=== PATIENT | male | born 1995 | race African-American/Black ===

== ENCOUNTER 2024-01-20 09:41 | Inpatient (IN) | payer OTHER, SELFPAY ==
[2024-01-20] MEDS ORDERED: Iopamidol-370 76% 500 ML MDV (1 ML CHARGE) ONE (10:01)
[2024-01-20 10:31] LABS: #Basophils 0.04 10x3/uL (0.0-0.2); %Basophils 0.6 % (0.0-1.0); %Eosinophils 0.7 % (0.0-10.0); %Lymphocytes 28.4 % (21.0-51.0); %Monocytes 13.2 % (0.0-10.0); Hematocrit 40.5 % (42.0-52.0); Mean Corpuscular HGB CONC 32.1 g/dL (32.0-36.0); Mean Corpuscular Volume 71.8 fL (78.0-98.0); Mean Platelet Volume 8.5 fL (7.4-10.4); Platelet Count 423 10x3/uL (130-400); Red Blood Cell (RBC) Count 5.64 mill/uL (4.70-6.10)
[2024-01-20 10:50] LABS: ALT (SGPT) 10 U/L (8-55); AST (SGOT) 36 U/L (5-34); Albumin 3.7 g/dL (3.5-5.0); Alkaline Phosphatase 69 U/L (40-110); Anion Gap 16 mmol/L (10-20); BUN (Urea Nitrogen) 19 mg/dL (8.9-20.6); Bilirubin, Total 0.4 mg/dL (0.2-1.2); Calc. Creatinine Clearance 0 mL/min (70-130); Calcium 9.2 mg/dL (7.8-10.44); Carbon Dioxide 25 mmol/L (22-29); Chloride 100 mmol/L (98-107); Estimated GFR 26; Globulin 4.5 g/dL (2.4-3.5); Glucose 105 mg/dL (70-105); Lipase 17 U/L (8-78); Potassium 4.7 mmol/L (3.5-5.1); Protein, Total 8.2 g/dL (6.0-8.3); Sodium 136 mmol/L (136-145)
[2024-01-20] MEDS ORDERED: HYDROmorphone 0.5 MG/0.5 ML SYRINGE ONE (10:51)
[2024-01-20] MEDS ORDERED: Ondansetron PF 4 MG/2 ML Vial ONE (10:51)
[2024-01-20 11:26] LABS: Bacteria/HPF None Seen HPF (None Seen); Bilirubin Negative (Negative); Blood, Urine Trace (Negative); CAUTI Indications for Culture Dysuria,urgency,freq; Clarity Clear (Clear); Glucose, Urine (Dipstick) Normal (Negative); Ketone, Urine Negative (Negative); Leukocyte Negative Leu/uL (Negative); Nitrite Negative (Negative); Protein, Urine (Dipstick) 100 mg/dL (Neg-Trace); RBC/HPF 0-3 HPF (0-3); Squamous Epithelial 0-3 HPF (0-3); Urobilinogen Normal mg/dL (Less than 2); WBC/HPF 0-3 HPF (0-3); pH, Urine 5.5 (5.0-9.0)
[2024-01-20 11:29] LABS: Urine Culture Reflex No No
[2024-01-20 11:29] LABS: Microcytosis SLIGHT = 6-15 cells HPF (0-5); Platelet Adequacy Comment Platelets Increased; Polychromasia SLIGHT = 2-3 cells HPF (0-2)
[2024-01-20] MEDS ORDERED: Morphine 4 MG/ML VIAL ONE (11:36)
[2024-01-20] MEDS: HYDROcodone/Acetaminophen 5/325 mg Tablet PO PRN (13:31)
[2024-01-20] MEDS: Sodium Chloride 0.9% 1,000 ML IV SCH (13:32)
[2024-01-20] MEDS: Pantoprazole DR 40 MG TAB PO SCH ×2 (13:38→20:16)
[2024-01-20 13:49] VITALS: BMI 21.9
[2024-01-20] MEDS: Morphine 2 MG/ML VIAL SLOW IVP PRN (15:54)
[2024-01-20] MEDS: Heparin 5,000 UNITS/ML VIAL SC SCH (15:56)
[2024-01-20] MEDS: Mag-Al 1200 mg/1200 mg/30 ML UDCUP PO PRN (17:50)
[2024-01-20] MEDS: Ondansetron PF 4 MG/2 ML Vial IVP PRN (17:51)
[2024-01-20] MEDS: traMADol HCl 50 MG TAB PO PRN (20:16)
[2024-01-20] MEDS: Cyclobenzaprine 10 MG TAB PO SCH (20:17)
[2024-01-20] MEDS ORDERED: Famotidine 20 MG TAB PO SCH (21:00)
[2024-01-21 05:34] LABS: #Basophils 0.06 10x3/uL (0.0-0.2); %Basophils 0.8 % (0.0-1.0); %Eosinophils 1.8 % (0.0-10.0); %Lymphocytes 30.7 % (21.0-51.0); %Monocytes 15.7 % (0.0-10.0); %Neutrophils 50.7 % (42.0-75.0); Hematocrit 31.3 % (42.0-52.0); Mean Corpuscular HGB CONC 31.9 g/dL (32.0-36.0); Mean Corpuscular Hemoglobin 23.3 pg (27.0-31.0); Mean Platelet Volume 8.8 fL (7.4-10.4); Platelet Count 367 10x3/uL (130-400); RBC Distribution Width 18.6 % (11.5-14.5); Red Blood Cell (RBC) Count 4.29 mill/uL (4.70-6.10)
[2024-01-21 05:45] LABS: Anion Gap 13 mmol/L (10-20); BUN (Urea Nitrogen) 19 mg/dL (8.9-20.6); Calc. Creatinine Clearance 30 mL/min (70-130); Calcium 8.1 mg/dL (7.8-10.44); Carbon Dioxide 22 mmol/L (22-29); Chloride 106 mmol/L (98-107); Estimated GFR 27; Glucose 79 mg/dL (70-105); Potassium 4.2 mmol/L (3.5-5.1); Sodium 137 mmol/L (136-145)
[2024-01-21] MEDS ORDERED: fentaNYL 50 mcg/mL 1 mL Vial ONE (08:35)
[2024-01-21] MEDS: cefTRIAXone\\ROCEPHIN 1 GM in Sodium Chloride 0.9% 100 ML IVPB SCH (08:58)
[2024-01-21] MEDS ORDERED: Pantoprazole DR 40 MG TAB PO SCH (09:00)
[2024-01-21] MEDS ORDERED: SUCCINYLCHOLINE/SOD CL,ISO/PF 200 MG/10 ML SYRINGE FS ONE (09:16)
[2024-01-21] MEDS ORDERED: Lidocaine 1% PF 5 ML VIAL ONE (09:16)
[2024-01-21] MEDS ORDERED: Dexamethasone 4 mg/ml Vial ONE (09:21)
[2024-01-21] MEDS ORDERED: Ondansetron PF 4 MG/2 ML Vial ONE (09:21)
[2024-01-21] MEDS ORDERED: fentaNYL PF 100 MCG/2 ML SYRINGE ONE (09:59)
[2024-01-21] MEDS: hydrALAZINE 20 MG/ML VIAL SLOW IVP SCH (12:48)
[2024-01-21] MEDS: Pantoprazole 40 MG VIAL IVP SCH (12:48)
[2024-01-21 13:03] LABS: Hematocrit 36.7 % (42.0-52.0); Hemoglobin 11.3 g/dL (14.0-18.0)
[2024-01-21 13:20] LABS: Iron 20 ug/dL (65-175); Iron Binding Capacity, Total 308 mcg/dL (261-462)
[2024-01-21] MEDS: Lactated Ringer's 1,000 ML IV SCH (17:02)
[2024-01-21] MEDS: GoLYTELY 4,000 ml Bottle PO SCH (17:30)
[2024-01-21] MEDS: Acetaminophen 325 MG TAB PO PRN (19:11)
[2024-01-22] MEDS: Morphine 4 MG/ML VIAL SLOW IVP SCH (00:04)
[2024-01-22] MEDS ORDERED: PROPOFOL 40 ML ONE (09:20)
[2024-01-22] MEDS ORDERED: fentaNYL 50 mcg/mL 1 mL Vial ONE (10:26)
[2024-01-22] MEDS: NIFEdipine XL 30 MG ER.TAB PO SCH (10:40)
[2024-01-22] MEDS ORDERED: Iopamidol-370 76% 500 ML MDV (1 ML CHARGE) ONE (11:17)
[2024-01-22] MEDS: Sodium Ferric Gluconate 250 MG in Sodium Chloride 0.9% 250 ML 250 ML IVPB SCH (11:32)
[2024-01-22 12:02] LABS: Mean Corpuscular HGB CONC 32.3 g/dL (32.0-36.0); Mean Corpuscular Hemoglobin 23.1 pg (27.0-31.0); Mean Corpuscular Volume 71.6 fL (78.0-98.0); Mean Platelet Volume 8.8 fL (7.4-10.4); Platelet Count 389 10x3/uL (130-400); RBC Distribution Width 18.4 % (11.5-14.5); Red Blood Cell (RBC) Count 4.33 mill/uL (4.70-6.10)
[2024-01-22 12:17] LABS: Anion Gap 15 mmol/L (10-20); BUN (Urea Nitrogen) 16 mg/dL (8.9-20.6); Calc. Creatinine Clearance 43 mL/min (70-130); Calcium 8.4 mg/dL (7.8-10.44); Carbon Dioxide 21 mmol/L (22-29); Chloride 106 mmol/L (98-107); Estimated GFR 42; Glucose 81 mg/dL (70-105); Potassium 3.7 mmol/L (3.5-5.1); Sodium 138 mmol/L (136-145)
[2024-01-22] MEDS: Morphine 2 MG/ML VIAL SLOW IVP SCH (13:49)
[2024-01-22] MEDS: Albumin 25% 25 GM (100 mL) BOT IVPB SCH ×2 (14:44→20:05)
[2024-01-22] MEDS: fentaNYL 50 mcg/mL 1 mL Vial SLOW IVP SCH (15:07)
[2024-01-22] MEDS: Simethicone Chewable 80 MG TAB PO PRN (15:07)
[2024-01-22] MEDS: Lactated Ringer's 1,000 ML IV SCH (17:53)
[2024-01-22] MEDS: HYDROcodone/Acetaminophen 10/325 mg Tablet PO SCH (21:15)
[2024-01-23 06:00] LABS: Hematocrit 28.1 % (42.0-52.0); Hemoglobin 9.1 g/dL (14.0-18.0); Mean Corpuscular HGB CONC 32.4 g/dL (32.0-36.0); Mean Corpuscular Hemoglobin 23.2 pg (27.0-31.0); Mean Corpuscular Volume 71.5 fL (78.0-98.0); Mean Platelet Volume 9.2 fL (7.4-10.4); Platelet Count 379 10x3/uL (130-400); RBC Distribution Width 18.6 % (11.5-14.5); Red Blood Cell (RBC) Count 3.93 mill/uL (4.70-6.10)
[2024-01-23 06:13] LABS: Anion Gap 14 mmol/L (10-20); BUN (Urea Nitrogen) 14 mg/dL (8.9-20.6); Calc. Creatinine Clearance 45 mL/min (70-130); Calcium 8.5 mg/dL (7.8-10.44); Carbon Dioxide 22 mmol/L (22-29); Chloride 105 mmol/L (98-107); Estimated GFR 45; Glucose 85 mg/dL (70-105); Potassium 3.7 mmol/L (3.5-5.1); Sodium 137 mmol/L (136-145)
[2024-01-23] MEDS: Cyclobenzaprine 10 MG TAB PO PRN (14:25)
[2024-01-23] MEDS: Morphine 2 MG/ML VIAL SLOW IVP PRN (15:27)
[2024-01-23] MEDS: Ipratropium/Albuterol 3 ML NEB NEB SCH ×2 (21:15→22:48)
[2024-01-23] MEDS: Furosemide 20 MG (2 mL) VIAL SLOW IVP SCH (23:01)
[2024-01-24 05:25] LABS: Hematocrit 27.8 % (42.0-52.0); Hemoglobin 9.1 g/dL (14.0-18.0); Mean Corpuscular HGB CONC 32.7 g/dL (32.0-36.0); Mean Corpuscular Hemoglobin 23.4 pg (27.0-31.0); Mean Corpuscular Volume 71.5 fL (78.0-98.0); Mean Platelet Volume 9.4 fL (7.4-10.4); Platelet Count 369 10x3/uL (130-400); Red Blood Cell (RBC) Count 3.89 mill/uL (4.70-6.10)
[2024-01-24 05:51] LABS: Anion Gap 15 mmol/L (10-20); BUN (Urea Nitrogen) 12 mg/dL (8.9-20.6); Calc. Creatinine Clearance 45 mL/min (70-130); Calcium 8.9 mg/dL (7.8-10.44); Carbon Dioxide 25 mmol/L (22-29); Chloride 105 mmol/L (98-107); Estimated GFR 44; Glucose 75 mg/dL (70-105); Potassium 3.6 mmol/L (3.5-5.1); Sodium 141 mmol/L (136-145)
[2024-01-24] MEDS: NIFEdipine XL 60 MG ER.TAB PO SCH (08:52)
[2024-01-24] MEDS: Furosemide 40 MG (4 mL) VIAL SLOW IVP SCH (12:32)
[2024-01-24] MEDS ORDERED: Magnevist 469MG/ML 20 ML VIAL ONE (12:35)
[2024-01-25 10:13] LABS: Anion Gap 14 mmol/L (10-20); BUN (Urea Nitrogen) 11 mg/dL (8.9-20.6); Calc. Creatinine Clearance 60 mL/min (70-130); Calcium 8.8 mg/dL (7.8-10.44); Carbon Dioxide 25 mmol/L (22-29); Chloride 96 mmol/L (98-107); Estimated GFR 62; Glucose 76 mg/dL (70-105); Potassium 3.3 mmol/L (3.5-5.1); Sodium 132 mmol/L (136-145)
[2024-01-25 14:07] LABS: EliA Celiac New Method **** NEW METHOD ****; t-Transglutaminase (tTG) IgA 0.4 EliAU/mL (<7 Negative)
[2024-01-25] MEDS: Carvedilol 6.25 MG TAB PO SCH (16:47)
[2024-01-25] MEDS: Potassium Chloride 20 MEQ TAB PO SCH (16:47)
[2024-01-25] MEDS ORDERED: Ipratropium/Albuterol 3 ML NEB NEB SCH (19:00)
[2024-01-26 06:57] LABS: Anion Gap 16 mmol/L (10-20); BUN (Urea Nitrogen) 13 mg/dL (8.9-20.6); Calc. Creatinine Clearance 70 mL/min (70-130); Calcium 8.8 mg/dL (7.8-10.44); Carbon Dioxide 23 mmol/L (22-29); Chloride 101 mmol/L (98-107); Estimated GFR 76; Glucose 88 mg/dL (70-105); Potassium 3.9 mmol/L (3.5-5.1); Sodium 136 mmol/L (136-145)
[2024-01-26 09:47] LABS: Hematocrit 33.2 % (42.0-52.0); Hemoglobin 10.7 g/dL (14.0-18.0); Mean Corpuscular HGB CONC 32.2 g/dL (32.0-36.0); Mean Corpuscular Hemoglobin 23.2 pg (27.0-31.0); Mean Corpuscular Volume 71.9 fL (78.0-98.0); Mean Platelet Volume 9.4 fL (7.4-10.4); Platelet Count 433 10x3/uL (130-400); RBC Distribution Width 19.5 % (11.5-14.5); Red Blood Cell (RBC) Count 4.62 mill/uL (4.70-6.10)
[2024-01-26 10:21] LABS: Anisocytosis SLIGHT = 6-15 cells HPF (0-5); Band 5 % (5-11); Burr Cells SLIGHT = 2-5 cells HPF (0-1); Eosinophils 3 % (0-10); Hypochromia SLIGHT = 6-15 cells HPF (0-5); Lymphocytes 12 % (21-51); Microcytosis SLIGHT = 6-15 cells HPF (0-5); Monocytes 15 % (0-10); Neutrophil 65 % (42-75); Platelet Adequacy Comment Platelets Normal; Polychromasia MODERATE = 3-4 cells HPF (0-2); Schistocytes SLIGHT = 2-5 cells HPF (0-1); Target Cells SLIGHT = 2-5 cells HPF (0-1)
[2024-01-26 10:24] LABS: Influenza A by NAA Not Detected (NotDetected); Influenza B by NAA Not Detected (NotDetected); RSV by NAA Not Detected (NotDetected); SARS-CoV-2 NAA Rapid Test Not Detected (NotDetected)
[2024-01-26] MEDS: cefTRIAXone\\ROCEPHIN 2 GM in Sodium Chloride 0.9% 100 ML IVPB SCH (11:48)
[2024-01-26] MEDS ORDERED: [UNRECOGNIZED DRUG - OTHER] FS PRN (12:23)
[2024-01-26] MEDS: Furosemide 40 MG (4 mL) VIAL SLOW IVP SCH (14:34)
[2024-01-26] MEDS: HYDROcodone/Acetaminophen 5/325 mg Tablet PO PRN (20:36)
[2024-01-27 04:47] LABS: #Basophils 0.05 10x3/uL (0.0-0.2); %Basophils 0.3 % (0.0-1.0); %Eosinophils 2.5 % (0.0-10.0); %Lymphocytes 19.5 % (21.0-51.0); %Monocytes 15.4 % (0.0-10.0); %Neutrophils 61.8 % (42.0-75.0); Hematocrit 31.6 % (42.0-52.0); Hemoglobin 10.2 g/dL (14.0-18.0); Mean Corpuscular HGB CONC 32.3 g/dL (32.0-36.0); Mean Corpuscular Hemoglobin 23.1 pg (27.0-31.0); Mean Corpuscular Volume 71.7 fL (78.0-98.0); Mean Platelet Volume 9.3 fL (7.4-10.4); Platelet Count 456 10x3/uL (130-400); RBC Distribution Width 19.3 % (11.5-14.5); Red Blood Cell (RBC) Count 4.41 mill/uL (4.70-6.10)
[2024-01-27 08:51] LABS: Anion Gap 16 mmol/L (10-20); BUN (Urea Nitrogen) 11 mg/dL (8.9-20.6); Calc. Creatinine Clearance 75 mL/min (70-130); Carbon Dioxide 25 mmol/L (22-29); Chloride 99 mmol/L (98-107); Estimated GFR 82; Glucose 85 mg/dL (70-105); Potassium 3.9 mmol/L (3.5-5.1); Sodium 136 mmol/L (136-145)
[2024-01-27] MEDS: Ipratropium/Albuterol 3 ML NEB NEB PRN (22:18)
[2024-01-28 05:14] LABS: #Basophils 0.05 10x3/uL (0.0-0.2); %Basophils 0.4 % (0.0-1.0); %Eosinophils 3.6 % (0.0-10.0); %Lymphocytes 24.9 % (21.0-51.0); %Monocytes 17.3 % (0.0-10.0); %Neutrophils 53.4 % (42.0-75.0); Hematocrit 33.9 % (42.0-52.0); Hemoglobin 10.9 g/dL (14.0-18.0); Mean Corpuscular HGB CONC 32.2 g/dL (32.0-36.0); Mean Corpuscular Hemoglobin 23.2 pg (27.0-31.0); Mean Corpuscular Volume 72.3 fL (78.0-98.0); Mean Platelet Volume 9.4 fL (7.4-10.4); Platelet Count 529 10x3/uL (130-400); RBC Distribution Width 20.4 % (11.5-14.5); Red Blood Cell (RBC) Count 4.69 mill/uL (4.70-6.10)
[2024-01-28 05:30] LABS: Anion Gap 15 mmol/L (10-20); BUN (Urea Nitrogen) 9 mg/dL (8.9-20.6); Calc. Creatinine Clearance 95 mL/min (70-130); Carbon Dioxide 25 mmol/L (22-29); Chloride 100 mmol/L (98-107); Estimated GFR 109; Glucose 90 mg/dL (70-105); Potassium 4.2 mmol/L (3.5-5.1); Sodium 136 mmol/L (136-145)
[2024-01-28 13:13] VITALS: BMI 21.9
[2024-01-29 03:58] VITALS: TEMP 98.3
[2024-01-29 05:16] LABS: #Basophils 0.05 10x3/uL (0.0-0.2); %Basophils 0.5 % (0.0-1.0); %Lymphocytes 32.3 % (21.0-51.0); %Monocytes 19.8 % (0.0-10.0); %Neutrophils 43.1 % (42.0-75.0); Hematocrit 33.6 % (42.0-52.0); Hemoglobin 10.7 g/dL (14.0-18.0); Mean Corpuscular HGB CONC 31.8 g/dL (32.0-36.0); Mean Corpuscular Hemoglobin 22.8 pg (27.0-31.0); Mean Corpuscular Volume 71.6 fL (78.0-98.0); Mean Platelet Volume 9.6 fL (7.4-10.4); Platelet Count 569 10x3/uL (130-400); RBC Distribution Width 20.6 % (11.5-14.5); Red Blood Cell (RBC) Count 4.69 mill/uL (4.70-6.10)
[2024-01-29 05:33] LABS: Anion Gap 16 mmol/L (10-20); BUN (Urea Nitrogen) 8 mg/dL (8.9-20.6); Calc. Creatinine Clearance 90 mL/min (70-130); Calcium 9.2 mg/dL (7.8-10.44); Carbon Dioxide 23 mmol/L (22-29); Chloride 102 mmol/L (98-107); Estimated GFR 103; Glucose 109 mg/dL (70-105); Potassium 4.1 mmol/L (3.5-5.1); Sodium 137 mmol/L (136-145)
[2024-01-29 11:27] VITALS: BP 140/86
== END 2024-01-29 14:35 | disposition home or self-care (01) | DRG 682 ==
LOC: ERS 09:41 → T4-A 12:54 → OBSVTOIN 01-21 13:00 → 2NO 01-24 18:48
PROVIDERS: ADMIT Internal Medicine; ATTEND Family Medicine
PROC: 0DB68ZX Excision of Stomach, Via Natural or Artificial Opening Endoscopic, Diagnostic (ICD-10-PCS; principal; 2024-01-21)
PROC: 0DJD8ZZ Inspection of Lower Intestinal Tract, Via Natural or Artificial Opening Endoscopic (ICD-10-PCS; 2024-01-22)
PROC: 30233J1 Transfusion of Nonautologous Serum Albumin into Peripheral Vein, Percutaneous Approach (ICD-10-PCS; 2024-01-22)
PROC: 3E03329 Introduction of Other Anti-infective into Peripheral Vein, Percutaneous Approach (ICD-10-PCS; 2024-01-26)
DX: N17.9 Acute kidney failure, unspecified (principal); A41.9 Sepsis, unspecified organism; I50.23 Acute on chronic systolic (congestive) heart failure; J18.9 Pneumonia, unspecified organism; J96.01 Acute respiratory failure with hypoxia; R65.20 Severe sepsis without septic shock; J94.8 Other specified pleural conditions; I13.0 Hypertensive heart and chronic kidney disease with heart failure and stage 1 through stage 4 chronic kidney disease, or unspecified chronic kidney disease; E87.1 Hypo-osmolality and hyponatremia; K29.70 Gastritis, unspecified, without bleeding; D50.9 Iron deficiency anemia, unspecified; N18.9 Chronic kidney disease, unspecified; Z91.041 Radiographic dye allergy status; Z88.8 Allergy status to other drugs, medicaments and biological substances; K21.9 Gastro-esophageal reflux disease without esophagitis; Z98.890 Other specified postprocedural states; E78.5 Hyperlipidemia, unspecified; Z79.899 Other long term (current) drug therapy; Z79.01 Long term (current) use of anticoagulants; K64.8 Other hemorrhoids; E87.6 Hypokalemia
CPT/HCPCS: 0241U; 36415; 71045; 74018; 74177; 74183; 76705; 76770; 78451; 80048; 80053; 81001; 82728; 83516; 83540; 83550; 83605; 83690; 83880; 84145; 85025; 85027; 87040; 87400; 88305; 88342; 93005; 93010; 93306; 94640; 96361; 96374; 96375; A9540; J0360; J0696; J1100; J1171; J1644; J1940; J2272; J2405; J2470; J2704; J2916; J3010; J7030; J7050; J7120; J7620; P9047; Q9967